=== PATIENT | female | born 1930 | race Caucasian/White ===

== ENCOUNTER 2018-10-28 12:00 | Emergency (ER) | payer OTHER ==
[~2018-10-28] VITALS: Ht 144.8 cm; Wt 75.0 kg
[~2018-10-28 12:00] MED LIST: AMLO2.5T4 PO; GLYB5 PO; PANT40TA25 PO; SITA1TAB2 PO; VALS160T2 PO
[2018-10-28 12:29] LABS: GLUCOSE,POINT OF CARE 117 MG/DL (70-110)
[2018-10-28 15:51] LABS: BASOPHILS % (AUTO) 0.5 % (0.0-2.0); HEMOGLOBIN 12.1 g/dL (12.0-16.0); LYMPHOCYTES # (AUTO) 1.4 K/uL (1.0-4.8); LYMPHOCYTES % (AUTO) 24.4 % (22.0-44.0); MEAN CORPUSCULAR HEMOGLOBIN 30.8 pg (26.0-34.0); MEAN CORPUSCULAR HGB CONC 32.6 G/dL (31.0-37.0); MEAN CORPUSCULAR VOLUME 94 fL (80-100); MONOCYTES # (AUTO) 0.4 K/uL (0.1-1.0); MONOCYTES % (AUTO) 6.4 % (2.0-9.0); NEUTROPHILS # (AUTO) 3.9 K/uL (1.8-7.7); NEUTROPHILS % (AUTO) 66.7 % (40.0-70.0); PLATELET COUNT (AUTO) 311 K/uL (150-450); RED BLOOD CELL COUNT(AUTO) 3.92 MIL/uL (4.00-5.20); RED CELL DISTRIBUTION WIDTH 13.4 % (11.5-14.5)
[2018-10-28 16:02] LABS: ANION GAP 7 mmol/L (8-16); CALCIUM, TOTAL 9.3 mg/dL (8.8-10.5); CARBON DIOXIDE 31 mmol/L (22-29); CHLORIDE 102 mmol/L (98-107); CREATININE 0.61 mg/dL (0.60-1.30); GLUCOSE,RANDOM 78 mg/dL (70-110); INR 0.9 (0.9-1.1); POTASSIUM 4.4 mmol/L (3.5-5.1); PROTHROMBIN TIME 9.7 SEC (9.4-11.6); SODIUM SERUM 140 mmol/L (136-145); UREA NITROGEN, BLOOD 15 mg/dL (7-18)
[2018-10-28 16:06] LABS: GLOMERULAR FILTR. RATE CALC > 60 mL/min (>60)
[2018-10-28 16:08] LABS: ALANINE AMINOTRANSFERASE 16 U/L (12-78); ALBUMIN 3.4 g/dL (3.4-5.0); ALKALINE PHOSPHATASE 91 U/L (46-116); ASPARTATE AMINOTRANSFERASE 20 U/L (15-37); BILIRUBIN,TOTAL 0.4 mg/dL (0.1-1.0); CREATINE KINASE, TOTAL ONLY 48 U/L (26-192); TOTAL PROTEIN, SERUM 7.3 g/dL (6.4-8.2)
[2018-10-28 16:34] LABS: B-TYPE NATRIURETIC PEPTIDE 80 pg/mL (0-100)
[2018-10-28 17:43] LABS: GLUCOSE,POINT OF CARE 80 MG/DL (70-110)
[2018-10-28 18:38] LABS: APPEARANCE,URINE CLEAR (CLEAR); BILIRUBIN,URINE NEGATIVE (NEGATIVE); GLUCOSE, URINE (UA) NEGATIVE (NEGATIVE); KETONES,URINE NEGATIVE (NEGATIVE); LEUKOCYTE ESTERASE ,URINE SMALL (NEGATIVE); NITRATE,URINE NEGATIVE (NEGATIVE); OCCULT BLOOD,URINE NEGATIVE (NEGATIVE); PH,URINE 7.5 (5.0-8.0); PROTEIN,URINE NEGATIVE (NEGATIVE); UROBILINOGEN,URINE 0.2 mg/dL (<=1.0)
[2018-10-28 19:24] LABS: BACTERIA,URINE None Seen /HPF (None Seen); RBC,URINE None Seen /HPF (0-2); SQUAMOUS EPITHELIAL CELL,UR Rare /LPF (None Seen)
[2018-10-28 19:33] VITALS: BP 154/102
== END 2018-10-28 19:52 | disposition home or self-care (01) ==
LOC: EMS 12:01
DX: K92.2 Gastrointestinal hemorrhage, unspecified (principal); K57.90 Diverticulosis of intestine, part unspecified, without perforation or abscess without bleeding; E11.9 Type 2 diabetes mellitus without complications; I10 Essential (primary) hypertension; M19.90 Unspecified osteoarthritis, unspecified site; Z90.49 Acquired absence of other specified parts of digestive tract; Z88.0 Allergy status to penicillin
CPT/HCPCS: 74177; 86850; 86870; 86900; 86901; 93005